=== PATIENT | female | born 1975 | race Hispanic/Latino ===

== ENCOUNTER 2017-11-03 06:13 | Day surgery (SDC) | payer BC ==
[2017-09-04 09:31] VITALS: BMI 29.7
[2017-11-03 07:04] LABS: BASO # 0.02 K/mm3 (0.0-2.0); BASO % 0.6 % (0.0-3.0); GRAN # 1.35 (1.4-6.5); GRAN % 43.4 % (50.0-68.0); HEMOGLOBIN 13.2 g/dL (12.0-16.0); LYMPH # 1.5 (1.2-3.4); LYMPH % 47.6 % (22.0-35.0); MEAN CELL VOLUME 86.4 fl (80.0-105.0); MEAN CORPUSCULAR HGB CONC 33.6 g/dl (31.0-37.0); MEAN PLATELET VOLUME 9.3 fl (7.0-11.0); MONO # 0.3 (0.1-0.6); MONO % 8.4 % (1.0-6.0); RBC 4.55 10^6/uL (3.5-6.1); RED CELL DISTRIBUTION WIDTH 13.2 % (11.5-14.5); WHITE BLOOD COUNT 3.1 10^3/ul (4.5-11.0)
[2017-11-03 07:15] LABS: BLOOD UREA NITROGEN 13 mg/dL (7-21); GFR AFRICAN-AMERICAN > 60; GFR NON-AFRICAN AMERICAN > 60; HDL CHOLESTEROL 49 mg/dL (29-60)
[2017-11-03 07:26] LABS: LDL CHOLESTEROL 93 mg/dL (0-129)
[2017-11-03 07:30] LABS: INR 0.91 (0.93-1.08); PARTIAL THROMBOPLASTIN TIME 27.4 Seconds (25.1-36.5); PROTHROMBIN TIME 10.4 SECONDS (9.4-12.5)
[2017-11-03] MEDS ORDERED: Lidocaine 2% Inj (20ml) ONE (08:56)
[2017-11-03] MEDS ORDERED: Phenylephrine 10 mg/ml Inj ONE (08:59)
[2017-11-03] MEDS ORDERED: Iodixanol 320 MG/ML 200 ML BOTTLE IV ONE (09:14)
[2017-11-03] MEDS ORDERED: Midazolam 2 MG/2 ML VIAL ONE ×2 (09:15→09:36)
[2017-11-03] MEDS ORDERED: Sodium Chloride 0.9% 1,000 ML IV SCH (10:00)
[2017-11-03 10:41] VITALS: TEMP 97.8
--- NOTE | 2017-11-03 11:10 | CARD ---
APPROVED REPORT Date of service: 11/03/2017 EKG Measurement Heart [id number] <Conclusion> Normal sinus rhythm T wave abnormality in V Leads and AQVL. correlate Clinically.
--- NOTE | 2017-11-03 12:38 | CARDCATH ---
PROCEDURE DATE: 11/03/2017 HISTORY: The patient is a 42-year-old woman with a history of congenital heart disease in the past, who presents with chest pain, hypertension and an abnormal stress test. A cardiac catheterization was recommended. PROCEDURE: Left heart catheterization with coronary arteriography, left ventriculogram, supra-aortic valvular angiogram were performed. There were no complications. The right femoral artery was cannulated with a 6-[place] sheath. I performed moderate sedation, which included the presence of an independent trained observer that assisted in monitoring the patient's level of consciousness and physiologic status. After administration of Versed and fentanyl, my intra service time was 15 minutes. The findings on catheterization revealed a left ventricle that contracted normally. Estimated ejection fraction of 65-70%. Supra-aortic valvular injection revealed no aortic insufficiency. The patient's coronary artery revealed a right dominant circulation. The RCA was within normal limits. The left main artery was unremarkable. The LAD and diagonal vessels revealed intimal irregularities without critical lesions. The circumflex artery and obtuse marginal branches were free of significant disease. Angio-Seal was used to close the femoral artery site. The patient tolerated the procedure well. In summary, the procedure revealed normal LV function. Unremarkable coronary arteries. No aortic insufficiency and no mitral regurgitation noted. Given these findings, the patient's cardiac status is stable. We will need to review her echocardiogram to evaluate the status of her previous congenital heart disease. Herbert Crawford MD
[2017-11-03] MEDS ORDERED: Metoprolol Succinate 50 mg XL Tab PO STA (13:01)
[2017-11-03 13:17] VITALS: RESP 18
[2017-11-03] MEDS ORDERED: Metoprolol Succinate 50 mg XL Tab PO ONE (13:20)
[2017-11-03 15:29] VITALS: O2SAT 100
[2017-11-03 15:30] VITALS: BP 154/102; PULSE 90
== END 2017-11-03 16:25 | disposition home or self-care (01) ==
LOC: CATH 06:13
PROVIDERS: ATTEND Internal Medicine Cardiovascular Disease
DX: I25.10 Atherosclerotic heart disease of native coronary artery without angina pectoris (principal); I10 Essential (primary) hypertension; R94.39 Abnormal result of other cardiovascular function study; Z86.79 Personal history of other diseases of the circulatory system
CPT/HCPCS: 36415; 80048; 80061; 84703; 85025; 85610; 85730; 86850; 86900; 93005; 93458; 99152; C1760; C1769; C1894; J1644; J2250; J3010; J7030; J7040; Q9967

== ENCOUNTER 2018-01-30 08:42 | Emergency (ER) | payer OTHER, BC ==
[2018-01-30 08:43] VITALS: BMI 29.7
--- NOTE | 2018-01-30 10:02 | ED PDOC ---
Arrival/HPI - General Chief Complaint: Back Pain Time Seen by Provider: 01/30/18 09:03 Historian: Patient - History of Present Illness Narrative History of Present Illness (Text): 01/30/18 09:59 A 42 year old female, whose past medical history includes HTN and open heart surgery as an , presents to the emergency department for further evaluation s/p slip and fall at work this morning. The patient states that she fell onto her upper back. She confirms mild head impact, and denies any loss of consciousness. She denies any blood thinner use. The patient denies fevers, chills, dizziness, sore throat, cough, chest pain, shortness of breath, dyspnea on exertion, abdominal pain, nausea, vomiting, diarrhea, neck pain, urinary/bowel changes or any other complaint. PMD: Dr. Howard Time/Duration: Other (This Morning) Symptom Onset: Sudden Symptom Course: Unchanged Activities at Onset: Rest, Light Context: Work Past Medical History - Provider Review Nursing Documentation Reviewed: Yes - Cardiac Hx Cardiac Disorders: Yes (congenital) Hx Hypertension: Yes Hx Pacemaker: No - Neurological Hx Paralysis: No - Hematological/Oncological Hx Blood Transfusions: No - Musculoskeletal/Rheumatological Hx Musculoskeletal Disorders: No - Psychiatric Hx Emotional Abuse: No Hx Physical Abuse: No Hx Substance Use: No - Surgical History Hx Open Heart Surgery: Yes - Anesthesia Hx Anesthesia Reactions: No Hx Malignant Hyperthermia: No - Suicidal Assessment Feels Threatened In Home Enviroment: No Family/Social History - Physician Review Nursing Documentation Reviewed: Yes Family/Social History: No Known Family HX Smoking Status: Never Smoked Hx Alcohol Use: No Hx Substance Use: No Allergies/Home Meds Allergies/Adverse Reactions: Allergies No Known Allergies Allergy (Verified 09/04/17 09:29) Home Medications: Home Meds Medication Instructions Recorded Confirmed Citalopram Hydrobromide [Celexa] 40 mg PO DAILY 09/04/17 11/03/17 Metoprolol Succinate XL [Toprol XL] 50 mg PO DAILY 09/04/17 11/03/17 Valsartan [Diovan] 80 mg PO DAILY 09/04/17 11/03/17 hydroCHLOROthiazide [Microzide] 12.5 mg PO DAILY 09/04/17 11/03/17 Review of Systems - Review of Systems Constitutional: absent: Fevers ENT: absent: Sore Throat Respiratory: absent: SOB, Cough Cardiovascular: absent: Chest Pain, HAMMER Gastrointestinal: absent: Abdominal Pain, Stool Changes, Diarrhea, Nausea, Vomiting Genitourinary Female: absent: Urine Output Changes Musculoskeletal: Back Pain (Midline spinal tenderness s/p slip and fall.). absent: Neck Pain Neurological: absent: Headache, Dizziness Physical Exam Temperature: Afebrile Blood Pressure: Hypertensive Pulse: Regular Respiratory Rate: Normal Appearance: Positive for: Well-Appearing, Non-Toxic, Comfortable Pain Distress: None Mental Status: Positive for: Alert and Oriented X 3 - Systems Exam Head: Present: Normocephalic. No: Contusion (No contusions to the head. ) Pupils: Present: PERRL Extroacular Muscles: Present: EOMI Conjunctiva: Present: Normal Mouth: Present: Moist Mucous Membranes Pharnyx: Present: Normal. No: ERYTHEMA, EXUDATE Nose (External): Present: Atraumatic Nose (Internal): Present: Normal Inspection. No: Septal Hematoma Neck: Present: Normal Range of Motion, Other (No cervical spinal tenderness. ). No: Meningeal Signs, MIDLINE TENDERNESS Respiratory/Chest: Present: Clear to Auscultation, Good Air Exchange. No: Respiratory Distress, Accessory Muscle Use Cardiovascular: Present: Regular Rate and Rhythm, Normal S1, S2. No: Murmurs Abdomen: No: Tenderness, Distention, Peritoneal Signs Back: Present: Midline Tenderness (Midline thoracic spinal tenderness, mild. No step- offs. ). No: CVA Tenderness, Paraspinal Tenderness Upper Extremity: Present: Normal Inspection, Normal ROM, NORMAL PULSES, Neurovascularly Intact, Capillary Refill < 2s. No: Cyanosis, Edema Lower Extremity: Present: Normal Inspection, NORMAL PULSES, Normal ROM, Neurovascularly Intact, Capillary Refill < 2 s. No: Edema, CALF TENDERNESS Neurological: Present: GCS=15, CN II-XII Intact, Speech Normal, Motor Func Grossly Intact, Normal Sensory Function, Normal Cerebellar Funct, Gait Normal, Other (No focal neurological deficits. ) Skin: Present: Warm, Dry, Normal Color. No: Rashes Psychiatric: Present: Alert, Oriented x 3, Normal Insight, Normal Concentration Medical Decision Making ED Course and Treatment: Impression: A 42 year old female presents to the emergency department with a complaint of midline spinal tenderness s/p slip and fall at work this morning. NEXUS Clear neck: no imaging needed: No ALOC, No distractors, No FND, No Midline tenderness, No intox. No contusion noted on head. Neuro exam completely normal. GCS15, walking well in NAD. No blood thinner usage. Given well appearance, will seek xray and reassess for neuro status. Plan: -- Chest X-ray -- Reassess and disposition Prior Visits: Notes and results from previous visits were reviewed. Progress Notes: 01/30/18 11:01 neuro exam remains unremarkable. No fx noted Chest X-ray Dictator : Shelbie Peña MD Report Date : 01/30/2018 10:56:17 IMPRESSION: No acute findings. will d/c home with return indications and f/u - RAD Interpretation Radiology Orders: 01/30/18 09:44 CHEST TWO VIEWS (PA/LAT) [RAD] Stat - Scribe Statement The provider has reviewed the documentation as recorded by the Scribe Lucia Alvarado Provider Scribe Attestation: All medical record entries made by the Scribe were at my direction and personally dictated by me. I have reviewed the chart and agree that the record accurately reflects my personal performance of the history, physical exam, medical decision making, and the department course for this patient. I have also personally directed, reviewed, and agree with the discharge instructions and disposition. Disposition/Present on Arrival - Present on Arrival Any Indicators Present on Arrival: No History of DVT/PE: No History of Uncontrolled Diabetes: No Urinary Catheter: No History of Decub. Ulcer: No History Surgical Site Infection Following: None - Disposition Have Diagnosis and Disposition been Completed?: Yes Diagnosis: Muscular pain Disposition: HOME/ ROUTINE Disposition Time: 22:50 Patient Problems: Current Active Problems Problem Status Onset Muscular pain Acute Condition: GOOD Discharge Instructions (ExitCare): Muscle and Bone Pain (DC), Contusion (DC) Additional Instructions: MAMADOU CASTRO, thank you for letting us take care of you today. Your provider was Bakari Magaña and you were treated for fall. The emergency medical care you received today was directed at your acute symptoms. If you were prescribed any medication, please fill it and take as directed. It may take several days for your symptoms to resolve. Return to the Emergency Department if your symptoms worsen, do not improve, or if you have any other problems. Please contact your doctor or call one of the physicians/clinics you have been referred to that are listed on the Patient Visit Information form that is included in your discharge packet. Bring any paperwork you were given at discharge with you along with any medications you are taking to your follow up visit. Our treatment cannot replace ongoing medical care by a primary care provider outside of the emergency department. Thank you for allowing the [facility] team to be part of your care today. If you had an X-Ray or CT scan: A Radiologist will review the ED reading if any change in treatment is needed we will contact you. If you had a blood, urine, or wound culture: It will take several days for the results, if any change in treatment is needed we will contact you. If you had an STI test: It will take 48 hours for the results. Please call after 1 week if you have not heard back. Referrals: Jay Howard, DO [Family Provider] - Follow up with primary Forms: [employer] (Polish), WORK NOTE
--- NOTE | 2018-01-30 10:59 | RAD ---
HISTORY: fall COMPARISON: No prior. TECHNIQUE: Chest PA and lateral FINDINGS: LUNGS: No focal consolidation. Please note that chest x-ray has limited sensitivity for the detection of pulmonary masses. PLEURA: No significant pleural effusion identified. No definite pneumothorax . CARDIOVASCULAR: The cardiomediastinal silhouette appears within normal limits of size. OSSEOUS STRUCTURES: No acute osseous abnormality identified. VISUALIZED UPPER ABDOMEN: Unremarkable. OTHER FINDINGS: None. IMPRESSION: No acute findings.
[2018-01-30 11:21] VITALS: RESP 18; TEMP 98.2; O2SAT 98
[2018-01-30 11:54] VITALS: BP 181/105; PULSE 71
== END 2018-01-30 11:56 | disposition home or self-care (01) ==
LOC: ED 08:42
DX: M79.10 Myalgia, unspecified site (principal); W01.0XXA Fall on same level from slipping, tripping and stumbling without subsequent striking against object, initial encounter; Y92.89 Other specified places as the place of occurrence of the external cause; Y99.0 Civilian activity done for income or pay